=== PATIENT | female | born 1945 | race Two or more races ===

== ENCOUNTER 2018-02-14 11:51 | Inpatient (IN) | payer MEDICARE, BC ==
[~2018-02-14] VITALS: Ht 167.6 cm; Wt 117.9 kg
--- NOTE | 2018-02-14 11:55 | NUR ---
BIB [facility] C/O SOB, HYPOXIC IN THE FIELD. PER EMS, 86% IN THE FIELD. PT APPEARS VERY ANXIOUS. GOWNED AND PLACED ON CONT CARDIAC AND POX MONITORING. ALL NEEDS ARE ATTENMDED, KEPT COMFORTABLE. DR READ AT BEDSIDE FOR EVALUATION
[2018-02-14 12:07] LABS: BASOPHILS % (AUTO) 0.6 % (0.0-2.0); EOSINOPHILS % (AUTO) 1.2 % (0.0-6.0); HEMATOCRIT 35 % (33-45); HEMOGLOBIN 10.8 g/dL (11.5-14.8); LYMPHOCYTES # (AUTO) 0.9 /CMM (0.8-4.8); LYMPHOCYTES % (AUTO) 13.3 % (20.0-44.0); MEAN CORPUSCULAR HEMOGLOBIN 31 PG (26.0-33.0); MEAN CORPUSCULAR HGB CONC 31 g/dl (31.0-36.0); MEAN CORPUSCULAR VOLUME 98 fL (82-100); MONOCYTES # (AUTO) 0.3 /CMM (0.1-1.30); MONOCYTES % (AUTO) 3.9 % (2.0-12.0); NEUTROPHILS # (AUTO) 5.6 /CMM (1.8-8.9); PLATELET COUNT (AUTO) 214 /CMM (150-450); RDW COEFFICIENT OF VARIATION 17.5 (11.5-15.0); RED BLOOD CELL COUNT(AUTO) 3.53 MIL/uL (4.0-5.2); WHITE BLOOD COUNT (AUTO) 6.9 K/uL (4.3-11.0)
[2018-02-14 12:17] LABS: CALCIUM, SERUM 9.8 mg/dL (8.5-10.1); CARBON DIOXIDE 26 mmol/L (21-32); CHLORIDE 105 mmol/L (98-107); CREATININE 0.9 mg/dL (0.6-1.3); GLUCOSE 183 mg/dL (74-106); POTASSIUM 4.2 mmol/L (3.5-5.1); SODIUM SERUM 139 mmol/L (136-145); UREA NITROGEN, BLOOD 14 mg/dL (7-18)
[2018-02-14 12:21] LABS: INR 1.35 (0.85-1.15)
[2018-02-14 12:24] LABS: TROPONIN I < 0.017 ng/mL (0.00-0.056)
[2018-02-14 12:29] LABS: ALANINE AMINOTRANSFERASE 30 U/L (12-78); ALBUMIN 2.7 g/dL (3.4-5.0); ALKALINE PHOSPHATASE 165 U/L (46-116); ASPARTATE AMINOTRANSFERASE 38 U/L (15-37); B-TYPE NATRIURETIC PEPTIDE 9154 PG/ML (0-125); BILIRUBIN,DIRECT 0.4 mg/dL (0.0-0.2); BILIRUBIN,TOTAL 1.2 mg/dL (0.2-1.0)
[2018-02-14] MEDS ORDERED: POTA20TA83 PO (12:39)
[2018-02-14] MEDS ORDERED: APIX5TAB PO (12:39)
[2018-02-14] MEDS ORDERED: FURO-145 PO (12:39)
[2018-02-14] MEDS ORDERED: FOLI1TAB16 PO (12:39)
[2018-02-14] MEDS ORDERED: METH2.5T PO (12:39)
[2018-02-14] MEDS ORDERED: ATOR20TA PO (12:39)
[2018-02-14] MEDS ORDERED: VENL150T PO (12:39)
[2018-02-14] MEDS ORDERED: METO100T14 PO (12:39)
[2018-02-14] MEDS ORDERED: HYDR-552 PO (12:39)
--- NOTE | 2018-02-14 12:43 | NUR ---
CALLED BUX CHLORINATOR OPERATOR WAS PAGED.
--- NOTE | 2018-02-14 12:46 | NUR ---
CALLED DR FOUNTAIN OFFICE, WAS PAGED.
[2018-02-14] MEDS ORDERED: LEVOFLOXACIN 750 MG /D5W 150ML 150 ML IV ONE (12:52)
[2018-02-14] MEDS ORDERED: FUROSEMIDE 20 MG/2 ML VIAL ONE (12:52)
[2018-02-14] MEDS ORDERED: LEVOFLOXACIN 750 MG /D5W 150ML PIGGYBACK IV ONE (13:00)
[2018-02-14] MEDS ORDERED: FUROSEMIDE 20 MG/2 ML VIAL IV ONE (13:00)
[2018-02-14 13:31] LABS: APPEARANCE,URINE Cloudy (CLEAR); BILIRUBIN,URINE Negative (NEGATIVE); BLOOD, URINE Large Ery/uL (NEGATIVE); COLOR,URINE Yellow (YELLOW); KETONES,URINE Negative (NEGATIVE); LEUKOCYTE ESTERASE ,URINE Small (NEGATIVE); NITRITE, URINE Positive (NEGATIVE); PROTEIN,URINE Trace mg/dl (NEGATIVE); UGLUCOSE Negative (NEGATIVE); UROBILINOGEN,URINE 0.2 EU/dL (0.2)
[2018-02-14 13:48] LABS: BACTERIA,URINE Many /HPF (None Seen); RBC,URINE 80-100 /HPF (0-2); WBC,URINE 20-50 /HPF (0-3)
[2018-02-14 13:49] LABS: SQUAMOUS EPITHELIAL CELL,UR Few /HPF (None Seen)
[2018-02-14] MEDS ORDERED: HYDROCODONE/APAP 5/325MG 1 EACH TABLET PO PRN ×2 (14:00→14:30)
[2018-02-14] MEDS ORDERED: ONDANSETRON HCL/PF 4 MG/2 ML VIAL IVP PRN (14:00)
[2018-02-14] MEDS ORDERED: MAG HYDROX/AL HYDROX/SIMETH 30 ML UDC PO PRN (14:00)
[2018-02-14] MEDS ORDERED: Z GUARD REMEDY 2 OZ OINT TP PRN (14:00)
[2018-02-14] MEDS ORDERED: ZOLPIDEM TARTRATE 5 MG TABLET PO PRN (14:00)
[2018-02-14] MEDS ORDERED: MAGNESIUM HYDROXIDE 30 ML UDC PO PRN (14:00)
[2018-02-14] MEDS ORDERED: LEVOFLOXACIN 500 MG /D5W 100ML 500 MG in PREMIX 1 EA IV SCH (14:00)
[2018-02-14] MEDS ORDERED: ACETAMINOPHEN 325 MG TABLET PO PRN (14:00)
--- NOTE | 2018-02-14 14:07 | NUR ---
REPORT GIVEN TO GERMAN PAUL FOR CONT OF CARE
--- NOTE | 2018-02-14 15:09 | NUR ---
TRANSFERRED TO FLOOR VIA ACLS PROTOCOL
[2018-02-14 15:30] VITALS: BP 103/82
[2018-02-14] MEDS ORDERED: IPRATROPIUM NEB FS 0.5 MG/2.5 ML AMPUL.NEB NEB SCH (15:30)
--- NOTE | 2018-02-14 15:30 | NUR ---
RN NOTE PT RECEIVED PT ON BED, FROM ER, AOX3, ON NC 2.0 L/MIN, VS STABLE IV IN R AC 20 G INTACT, DENIES PAIN, A-FIB ON THE MONITOR 94 BPM, PICTURES OF SKIN TAKEN, PT HAS SWOLLEN LEGS AND BOTH FEET. CALL LIGHT WITHIN REACH, BED IN LOW AND LOCKED POSITION, WILL CARRY OUT ADMITTING ORDERS.
[2018-02-14 16:00] VITALS: BP 103/82
[2018-02-14] MEDS: METOPROLOL TARTRATE 50 MG TABLET PO SCH (19:09)
--- NOTE | 2018-02-14 19:15 | NUR ---
BEER COOLER OPENING NOTES RECEIVED PATIENT IN BED, ALERT AND ORIENTED X 4, NO SOB NOTED, BREATHING EVEN AND UNLABORED, DENIES PAIN AT THIS TIME. ALL PATIENT'S NEEDS ATTENDED TO, PLACED CALL LIGHT WITHIN REACH. BED IN LOW POSITION AND LOCKED IN PLACE. WILL CONTINUE TO MONITOR. Addendum: 02/14/18 at 2042 by NEAL FUNG RN PT ON TELE WITH ST, HR @ 102.
[2018-02-14] MEDS: IPRATROPIUM NEB FS 0.5 MG/2.5 ML AMPUL.NEB NEB SCH (19:35)
[2018-02-14] MEDS: ALBUTEROL FS 2.5 MG/3 ML VIAL.NEB NEB SCH (19:35)
[2018-02-14] MEDS: APIXABAN 5 MG TABLET PO SCH (19:36)
[2018-02-14 20:00] VITALS: BP 118/41
[2018-02-14] MEDS: VENLAFAXINE XR 150 MG CAP.SR.24H PO SCH (21:10)
[2018-02-14] MEDS: ATORVASTATIN 10 MG TABLET PO SCH (21:10)
[2018-02-14 23:54] VITALS: BP 146/73
[2018-02-15] VITALS (7 sets, daily range): BP systolic 132–158; BP diastolic 61–89
[2018-02-15] MEDS: IPRATROPIUM NEB FS 0.5 MG/2.5 ML AMPUL.NEB NEB SCH ×4 (01:30→19:47)
--- NOTE | 2018-02-15 06:46 | NUR ---
THREAD REELER CLOSING NOTES PATIENT IN BED, ASLEEP BUT EASILY AROUSABLE, SLEPT WELL THROUGHOUT OUT THE SHIFT, TOLERATED BIPAP USE. NO SIGN OF ACUTE DISTRESS, BREATHING EVEN AND UNLABORED. ALL PATIENT'S NEEDS ATTENDED TO THROUGHOUT THE SHIFT. PLACED BED IN LOW POSITION, TURNED AND REPOSITIONED PT [id number] PERMITTED BY PATIENT. PLACED CALL LIGHT WITHIN EASY REACH. WILL ENDORSE TO AM SHIFT NURSE FOR CONTINUITY OF CARE. PT ON TELE MONITORING, ST @ 100s.
[2018-02-15 07:00] LABS: BASOPHILS % (AUTO) 0.5 % (0.0-2.0); EOSINOPHILS % (AUTO) 1.1 % (0.0-6.0); HEMATOCRIT 28 % (33-45); LYMPHOCYTES # (AUTO) 0.5 /CMM (0.8-4.8); LYMPHOCYTES % (AUTO) 8.7 % (20.0-44.0); MEAN CORPUSCULAR HEMOGLOBIN 32 PG (26.0-33.0); MEAN CORPUSCULAR HGB CONC 32 g/dl (31.0-36.0); MEAN CORPUSCULAR VOLUME 100 fL (82-100); MONOCYTES # (AUTO) 0.4 /CMM (0.1-1.30); MONOCYTES % (AUTO) 6.6 % (2.0-12.0); NEUTROPHILS # (AUTO) 4.8 /CMM (1.8-8.9); NEUTROPHILS % (AUTO) 83.1 % (43.0-81.0); PLATELET COUNT (AUTO) 146 /CMM (150-450); RDW COEFFICIENT OF VARIATION 18.5 (11.5-15.0); RED BLOOD CELL COUNT(AUTO) 2.81 MIL/uL (4.0-5.2); WHITE BLOOD COUNT (AUTO) 5.8 K/uL (4.3-11.0)
[2018-02-15 07:09] LABS: CALCIUM, SERUM 8.9 mg/dL (8.5-10.1); CREATININE 0.8 mg/dL (0.6-1.3); PHOSPHORUS 3.2 mg/dL (2.5-4.9); POTASSIUM 3.5 mmol/L (3.5-5.1)
[2018-02-15 07:21] LABS: THYROID STIMULATING HORMONE 0.008 uIU/mL (0.358-3.74)
[2018-02-15] MEDS: Magnesium 1GM/D5W 100ML PREMIX 100 ML IV SCH ×4 (07:30→10:19)
[2018-02-15] MEDS: ALBUTEROL FS 2.5 MG/3 ML VIAL.NEB NEB SCH ×4 (07:54→19:47)
[2018-02-15] MEDS ORDERED: hydrALAZINE HCL 25 MG TABLET PO PRN (08:00)
[2018-02-15 08:16] LABS: MAGNESIUM 1.2 mg/dL (1.8-2.4)
[2018-02-15] MEDS: FOLIC ACID 1 MG TABLET PO SCH (08:52)
[2018-02-15] MEDS: APIXABAN 5 MG TABLET PO SCH ×2 (08:52→16:12)
[2018-02-15] MEDS: METOPROLOL TARTRATE 50 MG TABLET PO SCH ×2 (08:52→16:13)
[2018-02-15] MEDS ORDERED: FUROSEMIDE 40 MG/4 ML VIAL IV SCH (09:00)
[2018-02-15] MEDS ORDERED: LEVOFLOXACIN 500 MG /D5W 100ML 500 MG in PREMIX 1 EA IV SCH (14:00)
--- NOTE | 2018-02-15 15:15 | NUR ---
Patient is alert,resides at [facility] [phone] with current plan to return to SNF once discharge. Addendum: 02/15/18 at 1515 by ELEUTERIO BUENROSTRO RN Amended: Links added.
--- NOTE | 2018-02-15 16:59 | NUR ---
director business integration, Suzanne, present to ask about discharge plan. She brought patient bautista. She wanted to have nebulizer for home use for the patient if MD agrees.
[2018-02-15] MEDS: FUROSEMIDE 40 MG/4 ML VIAL IV SCH (17:00)
--- NOTE | 2018-02-15 19:20 | NUR ---
Patient rounds for handoff with night nurse, HUMBERTO Linda. Brandon Conti RN
--- NOTE | 2018-02-15 19:20 | NUR ---
GENERAL FOUNDRY WORKER NOTE RECEIVED PATIENT RESTING COMFORTABLY IN BED, AOX3, SPEECH CLEAR, ON 3L O2 VIA NC, DENIES PAIN, ON TELE AFIB, NO S/SX OF CARDIAC OR RESPIRATORY DISTRESS, RAC #20G SL, PATENT FLUSHING WELL, SITE CDI, SKIN KEPT CLEAN AND DRY, SAFETY MAINTAINED AT ALL TIMES WILL CONTINUE TO MONITOR FOR ANY CHANGES IN CONDITION.
[2018-02-15] MEDS: ATORVASTATIN 10 MG TABLET PO SCH (21:16)
[2018-02-15] MEDS: VENLAFAXINE XR 150 MG CAP.SR.24H PO SCH (21:17)
[2018-02-16] VITALS: BP 139/65
[2018-02-16] MEDS: IPRATROPIUM NEB FS 0.5 MG/2.5 ML AMPUL.NEB NEB SCH ×4 (01:30→19:20)
[2018-02-16 04:00] VITALS: BP 145/74
[2018-02-16 07:05] LABS: BASOPHILS % (AUTO) 0.7 % (0.0-2.0); EOSINOPHILS % (AUTO) 5.6 % (0.0-6.0); HEMATOCRIT 28 % (33-45); HEMOGLOBIN 9.1 g/dL (11.5-14.8); LYMPHOCYTES # (AUTO) 0.7 /CMM (0.8-4.8); LYMPHOCYTES % (AUTO) 14.3 % (20.0-44.0); MEAN CORPUSCULAR HEMOGLOBIN 32 PG (26.0-33.0); MEAN CORPUSCULAR HGB CONC 32 g/dl (31.0-36.0); MEAN CORPUSCULAR VOLUME 99 fL (82-100); MONOCYTES # (AUTO) 0.5 /CMM (0.1-1.30); MONOCYTES % (AUTO) 10.8 % (2.0-12.0); NEUTROPHILS # (AUTO) 3.1 /CMM (1.8-8.9); NEUTROPHILS % (AUTO) 68.6 % (43.0-81.0); PLATELET COUNT (AUTO) 132 /CMM (150-450); RDW COEFFICIENT OF VARIATION 18.4 (11.5-15.0); RED BLOOD CELL COUNT(AUTO) 2.83 MIL/uL (4.0-5.2); WHITE BLOOD COUNT (AUTO) 4.6 K/uL (4.3-11.0)
--- NOTE | 2018-02-16 07:15 | NUR ---
WOUND CARE CONSULT WOUND CARE RECEIVED CONSULT FOR MINOR REDNESS, LOW MOBILITY, OBESITY. WOUND CARE WILL DEFER CONSULT AND SKIN MANAGEMENT/TREATMENT PLAN TO SURGICAL TEAM WHO ARE CURRENTLY FOLLOWING. ALL PRESSURE ULCER PREVENTION MEASURES ARE NOTED TO BE IN PLACE PER PLAN OF CARE. WILL SEE PRN. Addendum: 02/16/18 at 0718 by QUINTON BARRIOS WNDNU PATIENT WITH VANESSA AT 13.
[2018-02-16 07:23] LABS: CREATININE 0.8 mg/dL (0.6-1.3); MAGNESIUM 1.6 mg/dL (1.8-2.4); PHOSPHORUS 3.6 mg/dL (2.5-4.9); POTASSIUM 3.2 mmol/L (3.5-5.1)
[2018-02-16] MEDS: ALBUTEROL FS 2.5 MG/3 ML VIAL.NEB NEB SCH ×4 (07:48→19:20)
[2018-02-16 08:00] VITALS: BP 140/71
[2018-02-16] MEDS ORDERED: POTASSIUM CHLORIDE 20 MEQ TAB.PRT.SR PO ONE (08:30)
[2018-02-16] MEDS: FUROSEMIDE 40 MG/4 ML VIAL IV SCH ×2 (08:59→17:26)
[2018-02-16] MEDS: FOLIC ACID 1 MG TABLET PO SCH (08:59)
[2018-02-16] MEDS: Magnesium 1GM/D5W 100ML PREMIX 100 ML IV SCH ×3 (08:59→11:31)
[2018-02-16] MEDS: METOPROLOL TARTRATE 50 MG TABLET PO SCH ×2 (08:59→17:28)
[2018-02-16] MEDS: APIXABAN 5 MG TABLET PO SCH ×2 (09:02→17:28)
[2018-02-16] MEDS: DILTIAZEM HCL CD 300 MG PO SCH (11:37)
[2018-02-16 12:00] VITALS: BP 123/73
[2018-02-16 16:00] VITALS: BP 111/65
--- NOTE | 2018-02-16 18:58 | NUR ---
No SOB noted. On 3L NC. eating well. incontinence care done. turned and repositioned for comfort. bed low and locked. call light within reached. will cont to monitor.
[2018-02-16 20:00] VITALS: BP 121/68
[2018-02-16] MEDS: VENLAFAXINE XR 150 MG CAP.SR.24H PO SCH (21:00)
[2018-02-16] MEDS: ATORVASTATIN 10 MG TABLET PO SCH (21:00)
[2018-02-17] VITALS: BP 118/49
[2018-02-17] MEDS: IPRATROPIUM NEB FS 0.5 MG/2.5 ML AMPUL.NEB NEB SCH ×4 (01:28→20:04)
--- NOTE | 2018-02-17 01:42 | NUR ---
PER PT SHE'S BEEN USING HER HOME BIPAP SINCE TWO NIGHTS AGO DUE TO PT PREFERS TO USE HER HOME BIPAP. , HUMBERTO TOM.WILL VERIFY ORDER IN AM. EXPLAINED AND EDUCATED PT REGARDING HOME BIPAP NEEDS TO BE APPROVED BY BIO ENGINEER[employer] AND , PT STATES THAT IT WAS APPROVED ALREADY. Addendum: 02/17/18 at 0300 by VENTURA HUYNH RT PT IS ALERT AND VERBALIZE UNDERSTANDING OF BIPAP USE. NO SOB AND RESPIRATORY DISTRESS AT THIS TIME. HUMBERTO TOM Addendum: 02/17/18 at 0311 by VENTURA HUYNH RT NO RESPIRATORY DISTRESS AT THIS TIME
[2018-02-17 04:00] VITALS: BP 131/66
--- NOTE | 2018-02-17 07:40 | NUR ---
RN NOTE: PATIENT RECEIVED ALERT, AWAKE, ORIENTED X4. ON 3LPM O2 VIA NC, NOTED EPISODES OF COUGH. HOB ELEVATED. DENIES PAIN AT THIS TIME. ON TELE MONITOR A-FIB CONTROLLED. IV CATH INTACT, DRESSING DRY & CLEAN. PT CLEAN & DRY. ENCOURAGE TO USE CALL LIGHT FOR ASSISTANCE. WILL CONTINUE TO MONITOR.
[2018-02-17 07:54] LABS: CREATININE 0.9 mg/dL (0.6-1.3); MAGNESIUM 1.8 mg/dL (1.8-2.4); PHOSPHORUS 3.7 mg/dL (2.5-4.9); POTASSIUM 3.1 mmol/L (3.5-5.1)
[2018-02-17 08:00] VITALS: BP 124/60
[2018-02-17] MEDS: ALBUTEROL FS 2.5 MG/3 ML VIAL.NEB NEB SCH ×4 (08:08→20:04)
[2018-02-17] MEDS: FOLIC ACID 1 MG TABLET PO SCH (08:52)
[2018-02-17] MEDS: FUROSEMIDE 40 MG/4 ML VIAL IV SCH ×2 (08:52→17:18)
[2018-02-17] MEDS: METOPROLOL TARTRATE 50 MG TABLET PO SCH ×2 (08:53→17:19)
[2018-02-17] MEDS: APIXABAN 5 MG TABLET PO SCH ×2 (08:54→17:17)
[2018-02-17] MEDS: DILTIAZEM HCL CD 300 MG PO SCH ×2 (09:00→13:25)
[2018-02-17] MEDS: POTASSIUM CL. PREMIX PERIPHER. 50 ML IV SCH ×2 (09:29→10:33)
[2018-02-17] MEDS ORDERED: POTASSIUM CHLORIDE 20 MEQ POWDER PACKET PO ONE (09:30)
[2018-02-17 12:00] VITALS: BP 132/72
[2018-02-17] MEDS: Magnesium 1GM/D5W 100ML PREMIX 100 ML IV SCH ×2 (12:20→12:21)
[2018-02-17] MEDS ORDERED: MAGNESIUM OXIDE 400 MG TABLET PO ONE ×2 (13:30→22:00)
[2018-02-17 16:00] VITALS: BP 132/72
--- NOTE | 2018-02-17 18:42 | NUR ---
RN NOTE: PATIENT REMAINS ALERT AWAKE ORIENTED. ON 3LPM O2 VIA NC. NO BREATHING DIFFICULTY NOTED. DENIES PAIN & DISCOMFORT. SAFETY MEASURES OBSERVED. NO ANY SIGNIFICANT CHANGES NOTED DURING SHIFT. POTASSIUM & MAGNESIUM REPLACED ORDERED. CALL LIGHT WITHIN REACH. CONTINUE WITH PLAN OF CARE.
--- NOTE | 2018-02-17 19:30 | NUR ---
RN INITIAL NOTES: RECEIVED PATIENT IN BED, ALERT, AWAKE, ORIENTED X4. ON 3LPM O2 VIA NC. HOB ELEVATED. DENIES PAIN AT THIS TIME. ON TELE MONITOR A-FIB, RATE CONTROLLED 70s AT THIS TIME. [place] #22G SL PATENT AND INTACT, DRESSING DRY & CLEAN, FLUSHED WITH NS, FREE FROM ANY S/S OF INFILTRATION OR PHLEBITIS. PT CLEAN & DRY. ENCOURAGE TO USE CALL LIGHT FOR ASSISTANCE. WILL CONTINUE TO MONITOR.
[2018-02-17 20:00] VITALS: BP 139/64
[2018-02-17] MEDS: VENLAFAXINE XR 150 MG CAP.SR.24H PO SCH (21:23)
[2018-02-17] MEDS: ATORVASTATIN 10 MG TABLET PO SCH (21:23)
--- NOTE | 2018-02-17 23:00 | NUR ---
RN NOTES PATIENT PLACED ON CPAP BY RT MINERVA PER PATIENT REQUEST. PATIENT TOLERATING WELL, WILL CLOSELY MONITOR
[2018-02-18] VITALS: BP 144/83
[2018-02-18] MEDS: IPRATROPIUM NEB FS 0.5 MG/2.5 ML AMPUL.NEB NEB SCH ×3 (01:30→15:37)
[2018-02-18 04:00] VITALS: BP 116/45
--- NOTE | 2018-02-18 04:00 | NUR ---
RN NOTES PATIENT TAKEN OFF BIPAP PER REQUEST, PLACED BACK ON O2 VIA NC @ 3LPM, TOLERATING WELL, FREE FROM ANY S/S OF RESPIRATORY DISTRESS. WILL CONTINUE TO CLOSELY MONITOR
[2018-02-18 06:51] LABS: CALCIUM, SERUM 9.4 mg/dL (8.5-10.1); CREATININE 0.9 mg/dL (0.6-1.3); MAGNESIUM 1.8 mg/dL (1.8-2.4); PHOSPHORUS 3.4 mg/dL (2.5-4.9); POTASSIUM 3.6 mmol/L (3.5-5.1)
--- NOTE | 2018-02-18 07:00 | NUR ---
RN CLOSING NOTES PATIENT RESTING IN BED, APPEARS COMFORTABLE. WILL ENDORSE THE PATIENT TO THE AM SHIFT NURSE FOR CONTINUITY OF CARE
--- NOTE | 2018-02-18 07:29 | NUR ---
CAT SCAN TECH NOTES: RECEIVED PT ON BED ALERT AND AWAKE. ABLE TO MAKE NEEDS KNOWN. NO ACUTE DISTRESS NOTED. DENIES PAIN AT THIS TIME. ON O2 3LPM VIA NC, SATURATING WELL. NO SOB NOTED. ON TELE MONITOR, A. IB HR 83BPM. IV ON [place] #22 INTACT AND PATENT, FLUSHING WELL. KEPT CLEAN, DRY AND COMFORTABLE. CALL LIGHT PLACED WITHIN REACH. ENCOURAGED TO CALL FOR ASSISTANCE IF NEEDED. SAFETY AND FALL PRECAUTIONS OBSERVED AND MAINTAINED. WILL CONTINUE TO MONITOR PT.
[2018-02-18 08:00] VITALS: BP 149/72
[2018-02-18] MEDS: ALBUTEROL FS 2.5 MG/3 ML VIAL.NEB NEB SCH ×3 (08:02→15:37)
[2018-02-18] MEDS: FUROSEMIDE 40 MG/4 ML VIAL IV SCH (08:30)
[2018-02-18] MEDS: METOPROLOL TARTRATE 50 MG TABLET PO SCH (08:30)
[2018-02-18] MEDS: FOLIC ACID 1 MG TABLET PO SCH (08:30)
[2018-02-18] MEDS: APIXABAN 5 MG TABLET PO SCH (08:30)
[2018-02-18] MEDS ORDERED: DILT300C3 PO (09:41)
[2018-02-18] MEDS ORDERED: IPRA0.2S9 NEB (09:41)
[2018-02-18] MEDS ORDERED: FURO-144 PO (09:42)
[2018-02-18 12:00] VITALS: BP 104/58
[2018-02-18] MEDS: DILTIAZEM HCL CD 300 MG PO SCH (12:07)
[2018-02-18] MEDS ORDERED: FUROSEMIDE 20 MG/2 ML VIAL IV ONE (13:00)
[2018-02-18] MEDS ORDERED: POTASSIUM CHLORIDE 20 MEQ POWDER PACKET PO ONE (13:00)
[2018-02-18] MEDS ORDERED: Magnesium 1GM/D5W 100ML PREMIX 100 ML IV SCH (13:00)
--- NOTE | 2018-02-18 13:30 | NUR ---
RN NOTES: PER FIDENCIO MORRIS TO CHANGE IV MAGNESIUM REPLACEMENT TO PO.
[2018-02-18] MEDS ORDERED: MAGNESIUM OXIDE 400 MG TABLET PO ONE (14:00)
[2018-02-18 16:00] VITALS: BP 134/56
--- NOTE | 2018-02-18 16:55 | NUR ---
RN NOTES: PATIENT WAS DISCHARGED AT BOARD AND CARE, ACCOMPANIED BY 2 BOOM TRUCK DRIVER. PT IN STABLE CONDITION. NO ACUTE DISTRESS NOTED. NO SOB. DISCHARGE INSTRUCTIONS PROVIDED. BELONGINGS LIST SIGNED. IV LINE REMOVED. ALL NEEDS MET.
== END 2018-02-18 17:04 | disposition home or self-care (01) | DRG 291 ==
LOC: ER 12:03 → TELE1 14:30
PROVIDERS: ADMIT Internal Medicine; ATTEND Internal Medicine
PROC: 5A09357 Assistance with Respiratory Ventilation, Less than 24 Consecutive Hours, Continuous Positive Airway Pressure (ICD-10-PCS; principal; 2018-02-15)
DX: I11.0 Hypertensive heart disease with heart failure (principal); J96.01 Acute respiratory failure with hypoxia; J15.9 Unspecified bacterial pneumonia; N39.0 Urinary tract infection, site not specified; E44.0 Moderate protein-calorie malnutrition; J98.11 Atelectasis; I50.33 Acute on chronic diastolic (congestive) heart failure; G47.33 Obstructive sleep apnea (adult) (pediatric); I48.0 Paroxysmal atrial fibrillation; E78.5 Hyperlipidemia, unspecified; K21.9 Gastro-esophageal reflux disease without esophagitis; F41.9 Anxiety disorder, unspecified; F32.9 Major depressive disorder, single episode, unspecified; Z88.5 Allergy status to narcotic agent; Z88.0 Allergy status to penicillin; Z88.8 Allergy status to other drugs, medicaments and biological substances; Z79.01 Long term (current) use of anticoagulants; E83.42 Hypomagnesemia; M06.9 Rheumatoid arthritis, unspecified; E66.01 Morbid (severe) obesity due to excess calories; J44.9 Chronic obstructive pulmonary disease, unspecified; Z90.710 Acquired absence of both cervix and uterus; L89.150 Pressure ulcer of sacral region, unstageable; L98.9 Disorder of the skin and subcutaneous tissue, unspecified
CPT/HCPCS: 36415; 71045-TC; 80048-TC; 80076-TC; 81000-TC; 82746; 83540-TC; 83605-TC; 83735-TC; 83880; 84100-TC; 84443-TC; 84484-TC; 85025-TC; 85730-TC; 87040-TC; 87081-TC; 87086-TC; 87186-TC; 93307-TC; 94760-TC; A4216; A4606; J1940; J1956; J3475; J3480; Z7610

== ENCOUNTER 2021-03-11 12:30 | Outpatient (CLI) | payer MEDICARE, BC ==
[~2021-03-11 12:30] MED LIST: APIX5TAB PO; ATOR20TA PO; DILT300C57 PO; FOLI1TAB16 PO; FURO-144 PO; HYDR-4384 PO; IPRA0.2S9 NEB; METH2.5T PO; METO100T14 PO; POTA20TA83 PO; VENL150T PO
[2021-03-16] MEDS ORDERED: DILT120T2 PO (13:03)
== END 2021-03-11 23:59 | disposition home or self-care (01) ==
LOC: LAB 12:30
PROVIDERS: ATTEND Internal Medicine
DX: Z01.818 Encounter for other preprocedural examination (principal); Z20.822 Contact with and (suspected) exposure to COVID-19
CPT/HCPCS: C9803; U0003

== ENCOUNTER 2021-03-14 05:41 | Inpatient (IN) | payer MEDICARE, BC ==
[2021-03-14] VITALS (21 sets, daily range): BP systolic 90–153; BP diastolic 49–85
[~2021-03-14] VITALS: Ht 157.5 cm; Wt 109.8 kg
[2021-03-14 06:45] LABS: BASOPHILS # (AUTO) 0.1 K/uL (0.0-0.2); BASOPHILS % (AUTO) 1.1 % (0.0-2.0); EOSINOPHILS % (AUTO) 1.6 % (0.0-6.0); HEMATOCRIT 39 % (33-45); HEMOGLOBIN 12.9 g/dL (11.5-14.8); LYMPHOCYTES # (AUTO) 1.2 K/uL (0.8-4.8); LYMPHOCYTES % (AUTO) 19.6 % (20.0-44.0); MEAN CORPUSCULAR HGB CONC 33 g/dl (31.0-36.0); MEAN CORPUSCULAR VOLUME 92 fL (82-100); MONOCYTES # (AUTO) 0.8 K/uL (0.1-1.30); NEUTROPHILS # (AUTO) 3.8 K/uL (1.8-8.9); NEUTROPHILS % (AUTO) 64.7 % (43.0-81.0); PLATELET COUNT (AUTO) 170 K/uL (150-450); RED BLOOD CELL COUNT(AUTO) 4.24 MIL/uL (4.0-5.2); WHITE BLOOD COUNT (AUTO) 5.9 K/uL (4.3-11.0)
[2021-03-14] MEDS ORDERED: IV SET PRIMARY PUMP SET 1 EA INFUS.SET MC ONE (07:01)
[2021-03-14] MEDS ORDERED: IV NS 0.9% 0 ML ONE (07:01)
[2021-03-14] MEDS ORDERED: IODIXANOL 150 ML IV ONE (07:01)
[2021-03-14] MEDS ORDERED: ANESTHESIA TRAY IN PYXIS 1 EA TRAY MC ONE (07:11)
[2021-03-14] MEDS ORDERED: IV NS 0.9% 1,000 ML ONE (07:17)
[2021-03-14] MEDS ORDERED: IV NS 0.9% 500 ML IV ONE (07:18)
[2021-03-14 07:20] LABS: ALANINE AMINOTRANSFERASE 15 U/L (12-78); ALBUMIN 3.1 g/dL (3.4-5.0); ALKALINE PHOSPHATASE 111 U/L (46-116); ASPARTATE AMINOTRANSFERASE 27 U/L (15-37); CALCIUM, SERUM 9.2 mg/dL (8.5-10.1); CARBON DIOXIDE 27 mmol/L (21-32); CHLORIDE 105 mmol/L (98-107); CREATININE 1.9 mg/dL (0.6-1.3); GLUCOSE 122 mg/dL (74-106); POTASSIUM 3.8 mmol/L (3.5-5.1); SODIUM SERUM 142 mmol/L (136-145); TOTAL PROTEIN, SERUM 7.3 g/dL (6.4-8.2); UREA NITROGEN, BLOOD 27 mg/dL (7-18)
[2021-03-14] MEDS ORDERED: LIDOCAINE HCL/MPF 1% 30 ML VIAL IJ ONE (08:12)
[2021-03-14] MEDS ORDERED: DRON400T6 PO (08:48)
[2021-03-14] MEDS ORDERED: METF-440 PO (08:48)
[2021-03-14] MEDS ORDERED: DILT120T2 PO (08:48)
[2021-03-14] MEDS ORDERED: FURO20TA4 PO (08:48)
[2021-03-14] MEDS ORDERED: ONDANSETRON HCL/PF 4 MG/2 ML VIAL IVP PRN (10:30)
[2021-03-14] MEDS ORDERED: MAG HYDROX/AL HYDROX/SIMETH 30 ML UDC PO PRN (10:30)
[2021-03-14] MEDS ORDERED: TEMAZEPAM 15 MG CAPSULE PO PRN (10:30)
[2021-03-14] MEDS ORDERED: DEXTROSE 50%-WATER 50 ML DISP.SYRIN IV PRN (10:30)
[2021-03-14] MEDS ORDERED: MAGNESIUM HYDROXIDE 30 ML UDC PO PRN (10:30)
[2021-03-14] MEDS ORDERED: ACETAMINOPHEN 325 MG TABLET PO PRN (10:30)
[2021-03-14] MEDS ORDERED: Z GUARD REMEDY 2 OZ OINT TP PRN (10:30)
[2021-03-14] MEDS ORDERED: HYDROCODONE/APAP 5/325MG TABLET PO PRN (10:30)
[2021-03-14] MEDS ORDERED: HYDROCODONE/APAP 10/325MG TABLET PO PRN (10:30)
--- NOTE | 2021-03-14 11:00 | NUR ---
Patient was a direct admit to ICU from lab coordinator. Vitals signs stable and patient assessed and monitored. Right femoral artery assessed and pulse noted. No c/o pain or discomfort. No s/s of bleeding at the access site. Patient currently NPO. Assessments done and will be documented. Will continue to monitor. Call light with in reach. Bed is in lowest and locked position.
--- NOTE | 2021-03-14 11:30 | NUR ---
Swallow eval done and patient placed on liquid diet until Esophogram is done.
[2021-03-14] MEDS: BLOOD SUGAR DIAGNOSTIC 1 EACH STRIP IN SCH ×3 (12:00→22:14)
[2021-03-14] MEDS ORDERED: IV NS 0.9% 1,000 ML IV SCH (12:00)
[2021-03-14] MEDS: INSULIN REGULAR, HUMAN 100 UNIT/ML 3 ML VIAL SQ PRN ×3 (13:06→22:22)
--- NOTE | 2021-03-14 15:10 | NUR ---
Patient taken to radiology with tele monitor for esophogram and monitored closely throughout the exam. IV fluids put on hold for one hour.
[2021-03-14] MEDS: DRONEDARONE HYDROCHLORIDE 400 MG TABLET PO SCH (17:11)
[2021-03-14] MEDS: POTASSIUM CHLORIDE 20 MEQ TAB.PRT.SR PO SCH (17:11)
[2021-03-14 17:34] LABS: ABG BASE EXCESS -1.5 mmol/L; ABG PCO2 42.9 mmHg (35.0-45.0); ABG PH 7.364 (7.350-7.450); ABG PO2 38.4 mmHg (75.0-100.0); AaDO2 342.2 mmHg; COHb 0.6 % (0.5-1.5); MetHb 0.2 % (0.0-1.5); O2Hb 69.4 % (94.0-97.0); SITE, ABG Other; VENT MODE, BG RA
[2021-03-14 17:35] LABS: ABG BASE EXCESS 0.6 mmol/L; ABG OXYGEN SATURATION 63.3 % (92.0-98.5); ABG PCO2 45.3 mmHg (35.0-45.0); ABG PH 7.379 (7.350-7.450); ABG PO2 33.3 mmHg (75.0-100.0); AaDO2 344.7 mmHg; COHb 0.9 % (0.5-1.5); MetHb 0.3 % (0.0-1.5); O2Hb 62.5 % (94.0-97.0); SITE, ABG Other; VENT MODE, BG PA
[2021-03-14 17:35] LABS: ABG BASE EXCESS -1.6 mmol/L; ABG OXYGEN SATURATION 96.6 % (92.0-98.5); ABG PCO2 36.4 mmHg (35.0-45.0); ABG PO2 86.5 mmHg (75.0-100.0); AaDO2 301.3 mmHg; COHb 0.6 % (0.5-1.5); MetHb 0.1 % (0.0-1.5); O2Hb 95.9 % (94.0-97.0); SITE, ABG Other; VENT MODE, BG FN
--- NOTE | 2021-03-14 18:00 | NUR ---
Duplex ultrasound done of bilateral lower extremities with preleminary report being negative.
--- NOTE | 2021-03-14 18:59 | NUR ---
MASTER ESTHETICIAN CLOSING NOTES Patient is alert and oriented. Patient is breathing even and unlabored. No c/o pain or discomfort. Patient did not show any s/sx of respiratory distress. Right femoral cath access site free of s/sx of bleeding and pulse noted. Patient is s/p normal saline 75 cc/hour x 6 hours. Patient had ultrasound of kidneys done , doppler study of BLE done with preliminary report being negative. Patient passed swallow eval by speech therapist and Esophagram was done. Call light with in reach. Report will be provided to oncoming shift for BETSEY.
--- NOTE | 2021-03-14 19:45 | NUR ---
ICU/CROP PULLER RECIEVED REPORT FROM DAY SHIFT NURSE. SEE FLOWSHEET FOR ASSESSMENT, ALONG WITH A FEW SKIN ISSUES THAT ARE ADDRESSED ON THE FLOWSHEET ALONG WITH INTERVENTIONS. THERE ARE NO IV DRIPS WHICH NEED TO BE ADDRESSED ON IV SPREAD SHEET. PT WAS ASST WITH TURNING AND REPOSITIONING FOR COMFORT AND CARE. WILL CONTINUE TO MONITOR THIS PT. CALL LIGHT WITHIN REACH.
[2021-03-14] MEDS: METOPROLOL TARTRATE 50 MG TABLET PO SCH (21:00)
--- NOTE | 2021-03-14 21:10 | NUR ---
ICU/DRAMA CRITIC THE NIGHT TIME DOSE OF LOPRESSER WAS HELD FOR LOW BLOOD PRESSURE OF 90/52, HEART RATE OF 76. PT AWARE THAT THE BP IS ON THE LOW SIDE. WILL CONTINUE TO MONITOR THIS PT'S BP.
[2021-03-14] MEDS ORDERED: DILTIAZEM HCL CD 120 MG PO SCH (22:00)
[2021-03-14] MEDS: ATORVASTATIN 10 MG TABLET PO SCH (22:12)
--- NOTE | 2021-03-14 22:30 | NUR ---
ICU/CREW LEADER/CONTROL ROOM OPERATOR PT'S NIGHT TIME DOSE OF CARDIZEM CD WAS HELD DUE TO LOW BLOOD PRESSURE FOR 90/49, HEART RATE 73. NIGHT ACCU CHECK WAS 134, WHICH WAS COVERED WITH 2 UNITS OF REGULAR INSULIN. PT UNUSUALLY TAKES METFORMIN BUT WAS HELD TODAY FOR R/O ACUTE KIDNEY INJURY.
[2021-03-15] VITALS (17 sets, daily range): BP systolic 92–145; BP diastolic 55–108
--- NOTE | 2021-03-15 00:30 | NUR ---
ICU/ER TECH PT APPEARS TO BE ASLEEP. NO ACUTE DISTRESS SEEN. CALL LIGHT WITHIN REACH.
--- NOTE | 2021-03-15 02:46 | NUR ---
ICU/AUTOMATIC OVEN OPERATOR PT UP TO BATHROOM, USING BEDSIDE COMMODE. AT THIS TIME BEDDING WAS CHANGED. PT ASST. BACK TO BED. CALL LIGHT WITHIN REACH.
[2021-03-15 05:12] LABS: BASOPHILS % (AUTO) 0.9 % (0.0-2.0); EOSINOPHILS % (AUTO) 2.4 % (0.0-6.0); HEMATOCRIT 36 % (33-45); HEMOGLOBIN 12.1 g/dL (11.5-14.8); LYMPHOCYTES % (AUTO) 17.4 % (20.0-44.0); MEAN CORPUSCULAR HGB CONC 33 g/dl (31.0-36.0); MEAN CORPUSCULAR VOLUME 91 fL (82-100); MONOCYTES # (AUTO) 0.7 K/uL (0.1-1.30); NEUTROPHILS # (AUTO) 3.7 K/uL (1.8-8.9); NEUTROPHILS % (AUTO) 67.3 % (43.0-81.0); PLATELET COUNT (AUTO) 124 K/uL (150-450); RED BLOOD CELL COUNT(AUTO) 3.97 MIL/uL (4.0-5.2); WHITE BLOOD COUNT (AUTO) 5.6 K/uL (4.3-11.0)
[2021-03-15 05:43] LABS: CREATININE 1.3 mg/dL (0.6-1.3); MAGNESIUM 1.6 mg/dL (1.8-2.4); PHOSPHORUS 2.5 mg/dL (2.5-4.9); POTASSIUM 3.3 mmol/L (3.5-5.1)
[2021-03-15 06:12] LABS: THYROID STIMULATING HORMONE 0.02 uIU/mL (0.358-3.74)
--- NOTE | 2021-03-15 07:05 | NUR ---
ICU/PROSPECTING DRILLER REPORT GIVEN TO DAY SHIFT NURSE.
--- NOTE | 2021-03-15 07:30 | NUR ---
OPENING NOTE: REPORT RECEIVED FROM AARTI MARTINEZ. PT ALERT OX4, ABLE TO GET OUT OF BED TO COMMODE INDEPENDENTLY. AWAITING MD'S TO DECIDE IF PATIENT WILL GO HOME OR TRANSFER OUT OF THE ICU. WILL CONTINUE TO MONITOR.
[2021-03-15] MEDS: POTASSIUM CHLORIDE 20 MEQ TAB.PRT.SR PO SCH ×2 (11:11→18:21)
[2021-03-15] MEDS: BLOOD SUGAR DIAGNOSTIC 1 EACH STRIP IN SCH ×4 (11:11→22:00)
[2021-03-15] MEDS: FOLIC ACID 1 MG TABLET PO SCH (11:11)
[2021-03-15] MEDS: METOPROLOL TARTRATE 50 MG TABLET PO SCH ×2 (11:11→21:57)
[2021-03-15] MEDS: FUROSEMIDE 20 MG TABLET PO SCH (11:11)
[2021-03-15] MEDS: PANTOPRAZOLE 40 MG TABLET.DR PO SCH (11:12)
[2021-03-15] MEDS: Magnesium 1GM/D5W 100ML PREMIX 100 ML IV SCH ×2 (11:12→15:13)
[2021-03-15] MEDS: DRONEDARONE HYDROCHLORIDE 400 MG TABLET PO SCH (11:14)
--- NOTE | 2021-03-15 14:50 | NUR ---
REPORT GIVEN TO NELLI PAUL. PT LEFT ICU FOR TRANSFER TO ROOM 327-2 ACCOMPANIED BY CONCRETE POURER AND RN VIA BED. ALL BELONGINGS SENT WITH PATIENT. PT CHECKED ON HOURLY AND PRN BY NURSING STAFF.
--- NOTE | 2021-03-15 15:15 | NUR ---
CHEMIST FOOD NOTE RECEIVED PATIENT FROM ICU. PATIENT VERBALLY ENDORSED BY ISAIAH AND TRANSPORTED TO ROOM ON A BED. PATIENT ALERT AND ORIENTED X4 ON BED. ABLE TO VERBALIZE NEEDS. PATIENT WITH LEFT AC G20 ON SALINE LOCK. NOTED LYMPEDEMA ON BOTH LOWER EXTREMITIES WHICH IS CHRONIC PER PATIENT. PATIENT ABLE AMBULATE WITH WALKER AND TRANSFER WITH ASSIST. PATIENT IS CONTINENT OF BOTH BOWEL AND BLADDER. STILL TO COLLECT URINE FOR TESTING. AWAITING CALL FROM RADIOLOGY FOR CT SCAN. PER RN ISAIAH, PATIENT CAN EAT, NO DIET RESTRICTION FOR THE TEST. COMFORT MEASURES PROVIDED. SAFETY MEASURES ENSURED WITH BED LOCKED AND AT LOWEST POSITION. CALL LIGHT AND TABLE WITHIN REACH AT ALL TIMES. WILL CONTINUE TO MONITOR PATIENT.
--- NOTE | 2021-03-15 17:10 | NUR ---
COMMUNITY FUNDRAISER NOTE RADIOLOGIST CALLED TO VERIFY CT SCAN ORDER FOR CONTRAST BECAUSE IV IS SUGGESTED INSTEAD OF THE ORAL. VERIFIED ORDER WITH JB BONILLA AND AGREED WITH IV CONTRAST INSTEAD. RELAYED RESPONSE TO RADIOLOGY. PATIENT STILL AWAITING CT SCAN. WILL CONTINUE TO MONITOR PATIENT.
--- NOTE | 2021-03-15 19:00 | NUR ---
NUCLEAR OPERATIONS SPECIALIST CLOSING NOTE PATIENT ALERT AND ORIENTED X4 ON BED. ABLE TO VERBALIZE NEEDS. PATIENT WITH LEFT AC G20 ON SALINE LOCK. NOTED LYMPEDEMA ON BOTH LOWER EXTREMITIES WHICH IS CHRONIC PER PATIENT. PATIENT ABLE AMBULATE WITH WALKER AND TRANSFER WITH ASSIST. PATIENT IS CONTINENT OF BOTH BOWEL AND BLADDER. STILL TO COLLECT URINE FOR TESTING. STILL AWAITING CALL FROM RADIOLOGY FOR CT SCAN. COMFORT MEASURES PROVIDED. SAFETY MEASURES ENSURED WITH BED LOCKED AND AT LOWEST POSITION. CALL LIGHT AND TABLE WITHIN REACH AT ALL TIMES. WILL ENDORSE PATIENT FOR CONTINUITY OF CARE.
--- NOTE | 2021-03-15 20:01 | NUR ---
HAZARDOUS MATERIALS HANDLER OPENING NOTES: RECEIVED PATIENT AWAKE IN BED, BED IN LOW POSITION, CALL LIGHTS WITHIN REACH, NO COMPLAIN OF PAIN AND DISCOMFORT AT THIS TIME, A/O X4 AMBULATORY WITH ASSISTANCE, WITH IV LINE AT LFA#20 AND RFA#20 SL PATIENT IS ON TEL MONITORING WITH READING OF A FIB-80 NO SYMPTOMS WAS OBSERVE, PATIENT ON RA, NO SOB OR ANY RESP DISTRESS OBSERVED, PATIENT KEPT CLEAN AND DRY, WILL CONTINUE TO MONITOR.
[2021-03-15] MEDS: ATORVASTATIN 10 MG TABLET PO SCH (22:00)
[2021-03-16] VITALS: BP 127/70
[2021-03-16 00:31] VITALS: BP 127/70
[2021-03-16 04:00] VITALS: BP 136/71
--- NOTE | 2021-03-16 04:00 | NUR ---
rn notes patient is schedule for ct scan of chest with contrast, to evaluate esophageal obstruction, per radiologist in am but no specific time, notify dr valencia and order pt,. to put npo with d5 ns 1000cc@75ml per hour noted and carried out. will endorsed to incoming shift.
[2021-03-16 04:18] VITALS: BP 136/71
[2021-03-16] MEDS ORDERED: IV D5/ 0.9% NACL 1,000 ML IV PRN (05:00)
--- NOTE | 2021-03-16 07:10 | NUR ---
CONSTRUCTION SERVICES TECHNICIAN OPENING NOTE RECEIVED PATIENT ALERT AND ORIENTED X4 ON BED. ABLE TO VERBALIZE NEEDS. WITH IV ACCESS ON R FORE ARM, PATENT AND INTACT. MAINTAINED ON NPO FOR PROCEDURE. NOTED LYMPEDEMA ON BOTH LOWER EXTREMITIES WHICH IS CHRONIC PER PATIENT. PATIENT ABLE AMBULATE WITH WALKER AND TRANSFER WITH ASSIST. PATIENT IS CONTINENT OF BOTH BOWEL AND BLADDER. STILL TO COLLECT URINE FOR TESTING. STILL AWAITING CALL FROM RADIOLOGY FOR CT SCAN. COMFORT MEASURES PROVIDED. SAFETY MEASURES ENSURED WITH BED LOCKED AND AT LOWEST POSITION. CALL LIGHT AND TABLE WITHIN REACH AT ALL TIMES. WILL CONTINUE MONITORING PATIENT.
[2021-03-16 07:27] LABS: BASOPHILS # (AUTO) 0.1 K/uL (0.0-0.2); EOSINOPHILS % (AUTO) 4.2 % (0.0-6.0); HEMATOCRIT 36 % (33-45); HEMOGLOBIN 12.1 g/dL (11.5-14.8); LYMPHOCYTES # (AUTO) 1.1 K/uL (0.8-4.8); LYMPHOCYTES % (AUTO) 21.8 % (20.0-44.0); MEAN CORPUSCULAR HGB CONC 34 g/dl (31.0-36.0); MEAN CORPUSCULAR VOLUME 91 fL (82-100); MONOCYTES # (AUTO) 0.7 K/uL (0.1-1.30); MONOCYTES % (AUTO) 12.9 % (2.0-12.0); NEUTROPHILS # (AUTO) 3.1 K/uL (1.8-8.9); NEUTROPHILS % (AUTO) 60.1 % (43.0-81.0); PLATELET COUNT (AUTO) 112 K/uL (150-450); RED BLOOD CELL COUNT(AUTO) 3.95 MIL/uL (4.0-5.2); WHITE BLOOD COUNT (AUTO) 5.2 K/uL (4.3-11.0)
[2021-03-16] MEDS: PANTOPRAZOLE 40 MG TABLET.DR PO SCH (07:30)
--- NOTE | 2021-03-16 07:35 | NUR ---
RN OPENING NOTE RECEIVED PATIENT IN BED. A/O X4. ON ROOM AIR, NO SOB NOTED. IN NO APPARENT DISTRESS. DENIES ANY PAIN OR DISCOMFORT AT THIS TIME. IV ACCESS ON L FA #20 G, INTACT. CURRENTLY ON NPO STATUS. SAFETY MEASURES MAINTAINED. BED IN LOWEST POSITION, BRAKES LOCKED. SIDE RAILS UP X2. CALL LIGHT WITHIN REACH. WILL CONTINUE PLAN OF CARE. Addendum: 03/16/21 at 0806 by EMMA HENNESSY RN CORRECTION: IV ACCESS ON RFA #20 G, INTACT.
--- NOTE | 2021-03-16 07:45 | NUR ---
MULTICUT LINE OPERATOR CLOSING NOTES: PATIENT SLEEP IN BED COMFORTABLY, BED IN LOW POSITION, CALL LIGHTS WITHIN REACH, NO COMPLAIN OF PAIN AND DISCOMFORT AT THIS TIME , PATIENT IS A/O X4 AMBULATORY WITH SUPERVISION,, NPO WITH D5 NS 1000ML @75 ML PER HOUR INFUSING WELL, ON IV LINE AT RFA#20 INFUSING WELL, ALSO HAS LFA#20 IV LINE, DUE FOR CT SCAN OF THE CHEST WITH CONTTRAST IN AM, ALL NEEDS MET, KEPT CLEAN AND DRY, ENDORSE TO INCOMING SHIFT.
[2021-03-16] MEDS: BLOOD SUGAR DIAGNOSTIC 1 EACH STRIP IN SCH ×3 (07:52→18:01)
[2021-03-16 08:03] LABS: CALCIUM, SERUM 9.1 mg/dL (8.5-10.1); CREATININE 1.1 mg/dL (0.6-1.3); MAGNESIUM 1.7 mg/dL (1.8-2.4); PHOSPHORUS 2.2 mg/dL (2.5-4.9); POTASSIUM 3.3 mmol/L (3.5-5.1)
[2021-03-16] MEDS: POTASSIUM CHLORIDE 20 MEQ TAB.PRT.SR PO SCH ×2 (08:17→17:27)
[2021-03-16] MEDS: FOLIC ACID 1 MG TABLET PO SCH (08:17)
[2021-03-16] MEDS: METOPROLOL TARTRATE 50 MG TABLET PO SCH (08:17)
[2021-03-16] MEDS: FUROSEMIDE 20 MG TABLET PO SCH (08:17)
[2021-03-16] MEDS ORDERED: DILTIAZEM HCL CD 120 MG PO SCH (09:00)
[2021-03-16] MEDS ORDERED: METHOTREXATE SODIUM (2.5MG) 2.5 MG TABLET PO SCH (09:00)
--- NOTE | 2021-03-16 09:23 | NUR ---
RN NOTE BP OF 185/106, MANUALLY RECHECKED BP WENT UP TO 191/110. DR DILCIA BONILLA MADE AWARE AND ORDERED HYDRALAZINE 10 MG IV EVERY 4 HRS PRN. RECEIVED ORDER AND CARRIED OUT.
[2021-03-16] MEDS ORDERED: IOHEXOL-300 100 ML VIAL IV ONE (09:29)
[2021-03-16] MEDS ORDERED: IV NS 0.9% 250 ML IV ONE (09:29)
[2021-03-16] MEDS ORDERED: hydrALAZINE HCL IV 20 MG VIAL IV PRN (09:30)
[2021-03-16 09:36] VITALS: BP 191/110
--- NOTE | 2021-03-16 09:57 | NUR ---
RN NOTE ENDORSED PT TO HUMBERTO LEVY
--- NOTE | 2021-03-16 09:57 | NUR ---
RN NOTE RECHECKED BP, 158/96 FL 87 WILL CONTINUE TO MONITOR THROUGHOUT THE SHIFT
--- NOTE | 2021-03-16 10:10 | NUR ---
CASING SEWER NOTE PATIENT PICKED UP BY RADIOLOGY NURSE AND TRANSPORTED VIA BED FOR SCHEDULED PROCEDURE. WILL CONTINUE TO MONITOR PATIENT.
--- NOTE | 2021-03-16 10:31 | NUR ---
BINDING MACHINE OPERATOR NOTE PATIENT BACK FROM PROCEDURE, IN STABLE CONDITION.
[2021-03-16] MEDS ORDERED: POTASSIUM CHLORIDE 20 MEQ TAB.PRT.SR PO ONE (11:30)
[2021-03-16] MEDS: Magnesium 1GM/D5W 100ML PREMIX 100 ML IV SCH ×2 (11:58→12:40)
[2021-03-16] MEDS ORDERED: DILT120T2 PO (13:03)
[2021-03-16] MEDS ORDERED: K PHOS NEUTRAL 250 MG TABLET PO ONE (14:30)
[2021-03-16 15:00] LABS: BILIRUBIN,URINE NEGATIVE (NEGATIVE); COLOR,URINE YELLOW (YELLOW); LEUKOCYTE ESTERASE ,URINE SMALL (NEGATIVE); NITRITE, URINE NEGATIVE (NEGATIVE); PROTEIN,URINE TRACE mg/dl (NEGATIVE); UGLUCOSE NEGATIVE (NEGATIVE); UROBILINOGEN,URINE 0.2 EU/dL (0.2)
[2021-03-16 15:16] LABS: RBC,URINE 21-50 /HPF (0-2)
[2021-03-16 15:17] LABS: BACTERIA,URINE 2+ /HPF (None Seen)
[2021-03-16 15:34] LABS: CREATININE, URINE 122.7 MG/DL (30.0-125.0); URINE TOTAL PROTEIN 47.2 mg/dL (0-11.9)
--- NOTE | 2021-03-16 19:00 | NUR ---
BUSINESS INFO CONSULTANT CLOSING NOTE PATIENT ALERT AND ORIENTED X4 ON BED. ABLE TO VERBALIZE NEEDS. WITH IV ACCESS ON R FORE ARM, PATENT AND INTACT. NOTED LYMPEDEMA ON BOTH LOWER EXTREMITIES WHICH IS CHRONIC PER PATIENT. PATIENT ABLE AMBULATE WITH WALKER AND TRANSFER WITH ASSIST. PATIENT IS CONTINENT OF BOTH BOWEL AND BLADDER. PATIENT FOR DISCHARGE ORDERED. IV ACCCESS REMOVED. NO COMPLAINT OF PAIN. AWAITING PICK-UP. HEALTH TEACHING DONE AND VERBALIZED UNDERSTANDING. COMFORT MEASURES PROVIDED. SAFETY MEASURES ENSURED WITH BED LOCKED AND AT LOWEST POSITION. CALL LIGHT AND TABLE WITHIN REACH AT ALL TIMES. WILL ENDORSE FOR CONTINUITY OF CARE.
--- NOTE | 2021-03-16 19:49 | NUR ---
car rider Opening Notes Patient was last seen awake sitting on her bed. Patient's alert and oriented x4. Patient's on room air with no respiratory distress noted. Patient's connected to a tele monitor with no cardiac distress noted. Patient's pending discharge tonight so there's no IV access. Patient's in no acute distress at this time. Safety measures in place: Bed locked, bed alarm on, side rails upx3, and call light within reach of the patient. Will continue to monitor the patient.
--- NOTE | 2021-03-16 20:06 | NUR ---
road mechanicfinished goods planner Notes Patient was discharged from the hospital. All discharge paperwork has been signed by the patient. The patient had all of her belongings upon discharge. Patient was in no acute distress upon discharge. Patient's armband and IV access have been removed before discharge.
== END 2021-03-16 20:10 | disposition home or self-care (01) | DRG 286 ==
LOC: DS 05:41 → ICU 05:42 → TELE 03-15 15:05
PROVIDERS: ADMIT Nurse Practitioner Acute Care; ATTEND Nurse Practitioner Acute Care
PROC: 4A023N8 Measurement of Cardiac Sampling and Pressure, Bilateral, Percutaneous Approach (ICD-10-PCS; principal; 2021-03-14)
PROC: B216YZZ Fluoroscopy of Right and Left Heart using Other Contrast (ICD-10-PCS; 2021-03-14)
PROC: B211YZZ Fluoroscopy of Multiple Coronary Arteries using Other Contrast (ICD-10-PCS; 2021-03-14)
PROC: B41FYZZ Fluoroscopy of Right Lower Extremity Arteries using Other Contrast (ICD-10-PCS; 2021-03-14)
PROC: B24BZZ4 Ultrasonography of Heart with Aorta, Transesophageal (ICD-10-PCS; 2021-03-14)
DX: I34.0 Nonrheumatic mitral (valve) insufficiency (principal); J96.01 Acute respiratory failure with hypoxia; I50.33 Acute on chronic diastolic (congestive) heart failure; N17.0 Acute kidney failure with tubular necrosis; I13.0 Hypertensive heart and chronic kidney disease with heart failure and stage 1 through stage 4 chronic kidney disease, or unspecified chronic kidney disease; E44.1 Mild protein-calorie malnutrition; Z68.41 Body mass index [BMI] 40.0-44.9, adult; E11.22 Type 2 diabetes mellitus with diabetic chronic kidney disease; E78.5 Hyperlipidemia, unspecified; K21.9 Gastro-esophageal reflux disease without esophagitis; N18.9 Chronic kidney disease, unspecified; Z90.710 Acquired absence of both cervix and uterus; Z79.01 Long term (current) use of anticoagulants; J44.9 Chronic obstructive pulmonary disease, unspecified; E66.01 Morbid (severe) obesity due to excess calories; I11.0 Hypertensive heart disease with heart failure; E88.09 Other disorders of plasma-protein metabolism, not elsewhere classified; I48.0 Paroxysmal atrial fibrillation; K22.2 Esophageal obstruction; I89.0 Lymphedema, not elsewhere classified
CPT/HCPCS: 36415; 36600; 71260-TC; 74230-TC; 76770-TC; 80048-TC; 80053-TC; 80061-TC; 81001; 82570-TC; 82803-TC; 82962-TC; 83735-TC; 84100-TC; 84155-TC; 84300-TC; 84443-TC; 85025-TC; 85610-TC; 85730-TC; 87086-TC; 92526; 92611-TC; 93312-TC; 93970-TC; C1751; C1769; C1887; C1894; C9803; G0378; G0500; J0360; J1644; J1815; J2704; J3475; J3490; J7030; J7040; J7042; J7050; J8610; Q9967; U0003